=== PATIENT | female | born 1970 ===

== ENCOUNTER 2017-02-02 17:37 | Emergency (ER) | payer BC ==
[2017-02-02 18:20] VITALS: BP 128/85
--- NOTE | 2017-02-02 18:49 | UC ---
Throat Pain/Nasal Wenceslao HPI - HPI Summary HPI Summary: sore throat left ear pain fever and chills is leaving for [facility] in a couple of days - History of Current Complaint Chief Complaint: UCGeneralIllness Stated Complaint: SORE THROAT Time Seen by Provider: 02/02/17 18:31 Hx Obtained From: Patient Hx Last Menstrual Period: endometrial ablation 12/28/16 - hasn't had since ?: No Onset/Duration: Sudden Onset, Lasting Days - 2, Still Present Severity: Moderate Pain Intensity: 5 Pain Scale Used: 0-10 Numeric Cough: Nonproductive Associated Signs & Symptoms: Positive: Nasal Discharge, Fever - Allergies/Home Medications Allergies/Adverse Reactions: Allergies Allergy/AdvReac Type Severity Reaction Status Date / Time NSAIDs AdvReac Severe Bleeding Verified 02/02/17 18:06 Home Medications: Home Medications Zolpidem TAB* [Ambien*] 5 mg PO BEDTIME PRN 02/02/17 [History Confirmed 02/02/17 ] clonazePAM TAB(*) [Klonopin TAB(*)] 0.5 mg PO TID PRN 02/02/17 [History Confirmed 02/02/17] hydrOXYzine HCL TAB* [Atarax 10 MG TAB*] 10 mg PO TID PRN 02/02/17 [History Confirmed 02/02/17] PMH/Surg Hx/FS Hx/Imm Hx Previously Healthy: No Psychological History: Anxiety, Other Other Psychological History: Insomnia - Surgical History Surgical History: Yes Surgery Procedure, Year, and Place: endometrial ablation 2016 - Family History Known Family History: Positive: Blood Disorder - Social History Occupation: Employed Full-time Lives: With Family Alcohol Use: Occasionally Substance Use Type: None Smoking Status (MU): Never Smoked Tobacco - Immunization History Most Recent Tetanus Shot: WITHIN 5 YEARS Review of Systems Constitutional: Fever, Chills Skin: Negative Eyes: Negative ENT: Sore Throat, Ear Ache, Nasal Discharge Respiratory: Cough Cardiovascular: Negative Gastrointestinal: Negative Genitourinary: Negative Motor: Negative Neurovascular: Negative Musculoskeletal: Negative Neurological: Negative Psychological: Negative All Other Systems Reviewed And Are Negative: Yes Physical Exam Triage Information Reviewed: Yes Appearance: No Pain Distress, Well-Nourished, Ill-Appearing - mild Vital Signs: Initial Vital Signs Temp 98.7 F 02/02/17 18:08 Pulse 82 02/02/17 18:08 Resp 16 02/02/17 18:08 BP 128/85 02/02/17 18:08 Pulse Ox 99 02/02/17 18:08 Vital Signs Reviewed: Yes Eye Exam: Normal Eyes: Positive: Conjunctiva Clear ENT Exam: Normal Dental Exam: Normal Neck exam: Normal Neck: Positive: 1 Respiratory Exam: Normal Cardiovascular Exam: Normal Abdominal Exam: Normal Musculoskeletal Exam: Normal Neurological Exam: Normal Psychological Exam: Normal Skin Exam: Normal Diagnostics - Laboratory Diagnostic Studies Completed/Ordered: RST (-) Throat Pain/Nasal Course/Dx - Course Course Of Treatment: Pt dx with viral illness, she understands should sinus pain and pressue continue for another week she can start Antibiodics if needed - Differential Dx/Diagnosis Differential Diagnosis/HQI/PQRI: Otitis Media, Pharyngitis, Sinusitis, URI Provider Diagnoses: URI, Rhinnitis Discharge - Discharge Plan Condition: Stable Disposition: HOME Prescriptions: Amoxicillin (*) [Amoxicillin 875 MG (*)] 875 mg PO BID #20 tab Fluticasone NASAL SPRAY 50MCG* [Flonase NASAL SPRAY 50MCG*] 2 spray BOTH NARES DAILY #1 btl Patient Education Materials: Viral Syndrome (ED) Referrals: Emily Grossman MD [Primary Care Provider] - If Needed
== END 2017-02-02 18:58 | disposition home or self-care (01) ==
LOC: UCCORT 17:37
DX: J02.9 Acute pharyngitis, unspecified (principal)
CPT/HCPCS: 87651; 99212; G0463

== ENCOUNTER 2019-07-11 11:49 | Emergency (ER) | payer OTHER ==
[2019-07-11 12:23] VITALS: BP 113/79
--- NOTE | 2019-07-11 12:47 | UC ---
Upper Extremity HPI - HPI Summary HPI Summary: Patient is a 49yo female presenting with for R wrist, forearm, and shoulder pain since 9am this morning when she tripped up the stairs caught herself on her hands. Patient notes soreness of R shoulder without decreased ROM. Patient states more concern with wrist and forearm and noted decreased ROM of wrist due to pain. Notes tingling down into the hand. Denies decreased sensation. Denies swelling and bruising. - History of Current Complaint Chief Complaint: UCUpperExtremity Stated Complaint: WC-RT ARM INJURY Hx Obtained From: Patient Hx Last Menstrual Period: 2016 Onset/Duration: Sudden Onset, Lasting Hours Severity Currently: Mild Pain Intensity: 4 Pain Scale Used: 0-10 Numeric - Allergies/Home Medications Allergies/Adverse Reactions: Allergies Allergy/AdvReac Type Severity Reaction Status Date / Time NSAIDS (Non-Steroidal AdvReac Severe Bleeding Verified 07/11/19 12:10 Anti-Inflamma Home Medications: Home Medications Cbd Thc 5 mg PO TID PRN 07/11/19 [History Confirmed 07/11/19] Ibuprofen TAB* [Motrin TAB* 600 MG] 600 mg PO ONCE PRN 07/11/19 [History Confirmed 07/11/19] PMH/Surg Hx/FS Hx/Imm Hx Previously Healthy: Yes - Surgical History Surgical History: Yes Surgery Procedure, Year, and Place: endometrial ablation 2017, dx laparoscopy - Family History Known Family History: Positive: Blood Disorder, Non-Contributory - Social History Occupation: Employed Full-time Lives: With Family Alcohol Use: Occasionally Substance Use Type: Prescribed Smoking Status (MU): Never Smoked Tobacco - Immunization History Most Recent Tetanus Shot: WITHIN 5 YEARS Review of Systems All Other Systems Reviewed And Are Negative: No Skin: Positive: Negative. Negative: Bruising Respiratory: Positive: Negative Cardiovascular: Positive: Negative Musculoskeletal: Positive: Arthralgia - R wrist, forearm, shoulder, Decreased ROM - R wrist d/t pain Neurological: Positive: Paresthesia - R hand. Negative: Numbness Physical Exam Triage Information Reviewed: Yes Appearance: Well-Appearing, No Pain Distress, Well-Nourished Vital Signs: Initial Vital Signs Temp 98.6 F 07/11/19 12:18 Pulse 95 07/11/19 12:18 Resp 18 07/11/19 12:18 BP 113/79 07/11/19 12:18 Pulse Ox 98 07/11/19 12:18 Vital Signs Reviewed: Yes Eyes: Positive: Conjunctiva Clear ENT: Positive: Hearing grossly normal Neck: Positive: Supple Respiratory: Positive: No respiratory distress Cardiovascular: Positive: Pulses Normal - strong radial pulses, Brisk Capillary Refill Musculoskeletal: Positive: Strength Intact, No Edema, ROM Limited @ - R wrist flexion and extension d/t pain, Other: - tenderness to palpation of radial aspect of R wrist and proximal third of forearm Neurological Exam: Other - sensation grossly intact Neurological: Positive: Alert Psychological: Positive: Age Appropriate Behavior Skin Exam: Normal - no erythema or ecchymosis Diagnostics - Radiology R forearm Radiology Interpretation Completed By: Radiologist Summary of Radiographic Findings: IMPRESSION: NO FRACTURE IDENTIFIED. R wrist Radiology Interpretation Completed By: Radiologist Summary of Radiographic Findings: IMPRESSION: No fracture identified. Upper Extremity Course/Dx - Course Course Of Treatment: Discussed negative x-rays patient. Instructed to continuous symptomatic treatment including use of wrist splint. Instructed to follow-up with Dr. Wren if symptoms persist. Patient voiced understanding and agreed with treatment plan. - Differential Dx/Diagnosis Differential Diagnosis/HQI/PQRI: Contusion, Strain, Sprain Provider Diagnosis: Acute pain of right wrist, Right forearm pain Discharge ED - Sign-Out/Discharge Documenting (check all that apply): Patient Departure All imaging exams completed and their final reports reviewed: Yes - Discharge Plan Condition: Stable Disposition: HOME Patient Education Materials: Wrist Injury (ED) Referrals: Alli Wren MD [Medical Doctor] - If Needed Additional Instructions: As discussed, the xrays did not show any fractures. Rest, ice, elevate, and use the wrist splint to help relieve pain and offer support of the wrist. You may also use over the counter pain medications as directed for relief of pain. If pain does not resolve, follow up with the referral listed below. Return or go to the emergency room if pain worsens, the hand becomes cold and numb, or you are unable to move the arm/wrist. - Billing Disposition and Condition Condition: STABLE Disposition: Home - Attestation Statements Provider Attestation: This patient was not seen or examined by me. I was available for consult. Chart reviewed JEFRY
== END 2019-07-11 13:33 | disposition home or self-care (01) ==
LOC: UCCORT 11:49
DX: M25.531 Pain in right wrist (principal); M79.631 Pain in right forearm; M25.511 Pain in right shoulder; Z88.6 Allergy status to analgesic agent
CPT/HCPCS: 99212; G0463